=== PATIENT | female | born 1985 | race Caucasian/White ===

== ENCOUNTER → 2020-03-16 | Outpatient (CLI) | payer OTHER ==
[2020-03-16 10:29] LABS: Basophils # (A) 0.1 k/uL (0-0.2); Basophils % (A) 1 %; Eosinophils # (A) 0.7 k/uL (0-0.7); Eosinophils % (A) 11 %; HCT 40.8 % (34.0-46.0); HGB 13.7 gm/dL (11.4-16.0); Lymphocytes # (A) 2.6 k/uL (1.0-4.8); Lymphocytes % (A) 40 %; MCH 30.2 pg (25.0-35.0); MCHC 33.5 g/dL (31.0-37.0); MCV 90.4 fL (80.0-100.0); Mean Platelet Volume 7.6; Monocytes # (A) 0.3 k/uL (0-1.0); Monocytes % (A) 5 %; Neutrophils # (A) 2.7 k/uL (1.3-7.7); Neutrophils % (A) 41 %; Platelet Count 263 k/uL (150-450); RBC 4.52 m/uL (3.80-5.40); RDW 12.4 % (11.5-15.5); WBC 6.5 k/uL (3.8-10.6)
[2020-03-16 15:35] LABS: African American GFR (CKD) 83.9 (60.0-200.0); Non-African American GFR(CKD) 72.4 (60.0-200.0); Potassium 4.5 mmol/L (3.5-5.5)
== END | disposition home or self-care (01) ==
LOC: LABWHC1 09:28
PROVIDERS: ATTEND Plastic Surgery
DX: Z01.812 Encounter for preprocedural laboratory examination (principal); D64.9 Anemia, unspecified
CPT/HCPCS: 36415; 80051; 82565; 82947; 84520; 85025